=== PATIENT | male | born 1990 | race African-American/Black ===

== ENCOUNTER 2017-03-21 07:13 | Emergency (ER) | payer SELFPAY ==
[~2017-03-21] VITALS: Ht 170.2 cm; Wt 97.5 kg
[2017-03-21] MEDS ORDERED: DiphenhydrAMINE 50mg/ml Inj IVP ONE (08:00)
[2017-03-21] MEDS ORDERED: Ketorolac 30mg Inj IV ONE (08:00)
[2017-03-21] MEDS ORDERED: Metoclopramide 10mg/2ml Inj IVP ONE (08:00)
[2017-03-21 08:27] LABS: APPEARANCE,URINE CLEAR; KETONES,URINE NEGATIVE (NEGATIVE); LEUKOCYTE ESTERASE ,URINE 1+ (NEGATIVE); NITRITE,URINE NEGATIVE (NEGATIVE); PH,URINE 5 (4.5-8.0); PROTEIN,URINE NEGATIVE (NEGATIVE); UROBILINOGEN,URINE 1 MG/DL (0.0-1.0)
[2017-03-21 08:37] LABS: BACTERIA,URINE OCCASIONAL /HPF; CALCIUM OXALATE CRYSTALS,UR OCCASIONAL /LPF; MUCUS,URINE MODERATE /LPF (NONE/OCC); RBC,URINE 0-2 /HPF (0 - 0); SQUAMOUS EPITHELIAL CELL,UR OCCASIONAL /LPF (NONE/OCC)
[2017-03-21] MEDS ORDERED: CYCLOBENZAPRINE10 MG ORAL (09:08)
[2017-03-21] MEDS ORDERED: METROGEL60 GM TP (09:08)
[2017-03-21 09:36] VITALS: BP 129/81
--- NOTE | 2017-03-25 14:01 | Emergency Room Report ---
History of Present Illness General Chief Complaint: Pain Source: Patient Present Illness HPI Patient is a 26-year-old male who presented after increased low back pain. Patient gradual onset of symptoms at the past few days. Patient had associated mild headache. Patient reports having no vomiting or fever. He denied any neck stiffness. Pain was worse with movement. Patient no leg numbness or weakness. He reported having normal urinary function and bowel movements. He denies any fever. He reports having intermittent alcohol use. He denies any black or bloody stool. Allergies: Coded Allergies: No Known Allergies (Unverified , 03/21/17) Patient History Past Medical History: see triage record Reviewed Nursing Documentation: PMH: Agreed, PSxH: Agreed Nursing Documentation-PMH Past Medical History: No History, Except For Hx Cerebrovascular Accident: No - sciatica PAIN Review of Systems All Other Systems: negative except mentioned in HPI Physical Exam Vital Signs Date Time Temp Pulse Resp B/P Pulse Ox O2 Delivery O2 Flow Rate FiO2 03/21/17 07:27 97.3 86 20 129/73 98 Room Air General Appearance: well appearing, no apparent distress, alert, GCS 15, non- toxic Head: normocephalic, atraumatic ENT: hearing grossly normal, normal voice Neck: full range of motion, supple Respiratory: no respiratory distress, speaking full sentences Cardiovascular #1: normal inspection, regular rate, rhythm Gastrointestinal: normal inspection, soft Musculoskeletal: no calf tenderness, decreased range of mation, other - muscles tenderness lateral, no midline tenderness Neurologic: normal gait Psychiatric: normal inspection, mood/affect normal Skin: no rash, other - nasal rhinophyma, Medical Decision Making Diagnostic Impression: Primary Impression: Back pain Additional Impression: Headache ER Course Patient presented for back pain. Differential diagnosis included but was not limited to herniated disc, cauda equina syndrome, abdominal aortic aneurysm, perforated ulcer, spinal epidural abscess, spinal stenosis, lumbar fracture, metastatic lesion, pyelonephritis. Patient's benign exam and does not appear to require any further imaging or laboratory testing at this time. Patient was given pain medications. This appears to be muscular back pain. Patient does not appear to require imaging and had no recent trauma. The patient was advised that he may require MRI of the pain persists or worsens. The patient is advised to followup with his primary care physician for orthopedic referral. The patient was advised to return if began having bowel or bladder dysfunction, weakness or fever or other concerns Labs Test 03/21/17 08:12 Urine Color Yellow Urine Appearance Clear Urine pH 5 (4.5-8.0) Urine Specific Sparks 1.030 (1.005-1.035) Urine Protein Negative (NEGATIVE) Urine Glucose (UA) Negative (NEGATIVE) Urine Ketones Negative (NEGATIVE) Urine Occult Blood 1+ (NEGATIVE) Urine Nitrite Negative (NEGATIVE) Urine Bilirubin Negative (NEGATIVE) Urine Urobilinogen 1 MG/DL (0.0-1.0) Urine Leukocyte Esterase 1+ (NEGATIVE) Urine RBC 0-2 /HPF (0 - 0) Urine WBC 2-4 /HPF (0 - 0) Urine Squamous Epithelial Cells Occasional /LPF Urine Calcium Oxalate Crystals Occasional /LPF (NONE) Urine Bacteria Occasional /HPF (NONE) Urine Mucus Moderate /LPF (NONE/OCC) Last Vital Signs Date Time Temp Pulse Resp B/P Pulse Ox O2 Delivery O2 Flow Rate FiO2 03/21/17 09:36 82 20 129/81 03/21/17 09:36 98.1 Room Air 03/21/17 07:27 98 Status: improved Disposition: HOME, SELF-CARE Condition: Stable Scripts Metronidazole (METROGEL) 60 Gm Gel..gram. 60 GM TP TWICE A DAY, #60 GM Prov: Shadi Mccall 03/21/17 Cyclobenzaprine Hcl* (FLEXERIL*) 10 Mg Tablet 10 MG ORAL TID Y for Muscle Spasm, #20 TAB Prov: Shadi Mccall 03/21/17 Referrals: NOT CHOSEN IPA/,REFERRING (PCP) Patient Instructions: Headache and Arthritis, Rosacea Shadi Mccall Mar 25, 2017 14:01
== END 2017-03-21 09:36 | disposition home or self-care (01) ==
LOC: EMR 08:11
DX: M54.5 Low back pain (principal); R51 Headache
CPT/HCPCS: 81003; 96374; 96375; 99284; J1200; J1885; J2765